=== PATIENT | male | born 1985 | race Two or more races ===

== ENCOUNTER 2017-07-23 08:55 | Emergency (ER) | payer OTHER ==
[2017-07-23] MEDS ORDERED: IBUPROFEN 800 MG TABLET PO ONE (09:24)
--- NOTE | 2017-07-23 09:27 | ER Document Report ---
ED Extremity Problem, Upper - General Chief Complaint: Arm Injury Stated Complaint: RIGHT FOREARM PAIN Time Seen by Provider: 07/23/17 09:13 Mode of Arrival: Ambulatory Information source: Patient Notes: Patient is a 31-year-old male who presents to the ER today for right forearm pain after lifting a heavy log into a truck on the job yesterday and feeling a pop in the right forearm beneath the elbow. Patient states that he then afterwards felt something like "a tear." He states that he iced it last night and continue to try to move it because he thought that would make it better. He states it is very painful to move but denies any numbness or tingling. He states he had a painful sleep last night because of the arm. He denies any bruising or swelling. TRAVEL OUTSIDE OF THE [place] IN LAST 30 DAYS: No - Related Data Allergies/Adverse Reactions: No Known Allergies Allergy (Unverified 07/23/17 09:14) Past Medical History - General Information source: Patient - Social History Smoking Status: Never Smoker Chew tobacco use (# tins/day): No Frequency of alcohol use: Rare Drug Abuse: None Family History: Reviewed & Not Pertinent Patient has suicidal ideation: No Patient has homicidal ideation: No Renal/ Medical History: Denies: Hx Peritoneal Dialysis Review of Systems - Review of Systems Constitutional: No symptoms reported EENT: No symptoms reported Cardiovascular: No symptoms reported Respiratory: No symptoms reported Gastrointestinal: No symptoms reported Genitourinary: No symptoms reported Male Genitourinary: No symptoms reported Musculoskeletal: See HPI Skin: No symptoms reported Hematologic/Lymphatic: No symptoms reported Neurological/Psychological: No symptoms reported Physical Exam - Vital signs Vitals: Temp Pulse Resp BP Pulse Ox 98.2 F 67 18 139/72 H 100 07/23/17 09:00 07/23/17 09:00 07/23/17 09:00 07/23/17 09:00 07/23/17 09:00 - Notes Notes: PHYSICAL EXAMINATION: GENERAL: Well-appearing and in no acute distress. HEAD: Atraumatic, normocephalic. EYES: Pupils equal round and reactive to light, extraocular movements intact, sclera anicteric, conjunctiva are normal. NECK: Normal range of motion, supple without lymphadenopathy LUNGS: CTAB and equal. No wheezes rales or rhonchi. HEART: Regular rate and rhythm without murmurs BACK: no vertebral tenderness, normal ROM EXTREMITIES: Normal range of motion, but with pain on flexion of the right arm at the elbow and pain with gripping my hand with his hand, no pitting edema. No cyanosis. NEUROLOGICAL: Cranial nerves grossly intact. Normal sensory/motor exams. PSYCH: Normal mood, normal affect. SKIN: Warm, Dry, normal turgor, no rashes or lesions noted Course - Re-evaluation Re-evalutation: 07/23/17 09:55 X-ray reveals no acute pathology. Patient complete placed in [place] wrap and sling so that he does not flex the arm. Patient to follow-up with orthopedics for possible MRI if symptoms do not resolve or are not resolving in 2 weeks. - Vital Signs Vital signs: Temp Pulse Resp BP Pulse Ox 97.7 F 61 16 140/82 H 99 07/23/17 10:08 07/23/17 10:08 07/23/17 10:08 07/23/17 10:08 07/23/17 10:08 Discharge - Discharge Clinical Impression: Sprain of right forearm Qualifiers: Encounter type: initial encounter Qualified Code(s): S63.501A - Unspecified sprain of right wrist, initial encounter Condition: Stable Disposition: HOME, SELF-CARE Additional Instructions: Return immediately for any new or worsening symptoms. Follow up with orthopedics in 2 weeks if symptoms do not seem to be resolving at all. Prescriptions: Ibuprofen [Motrin 800 mg Tablet] 800 mg PO Q8H PRN #30 tab PRN Reason: Forms: Return to Work Referrals: COLIN MAY DO [ACTIVE STAFF] - Follow up as needed
--- NOTE | 2017-07-23 09:46 | RADIOLOGY REPORT (SQ) ---
EXAM DESCRIPTION: FOREARM RIGHT COMPLETED DATE/TIME: 07/23/2017 9:35 am REASON FOR STUDY: injury, pain COMPARISON: None. NUMBER OF VIEWS: Two views right radius and ulna. LIMITATIONS: None. FINDINGS: No fracture or bone lesion. Soft tissues normal. No gross elbow joint effusion. Probabl e ulnohumeral mild spurring. OTHER: No other significant finding. IMPRESSION: No acute or suspicious radiographic findings in the right forearm. TECHNICAL DOCUMENTATION: JOB ID: [id number]
[2017-07-23] MEDS ORDERED: HYDROCODONE/ACETAMINOPHEN 5-325 MG 6 TAB/DSPK PO PRN (09:57)
[2017-07-23 10:11] VITALS: BP 140/82
== END 2017-07-23 10:10 | disposition home or self-care (01) ==
LOC: ER 08:55
DX: S63.501A Unspecified sprain of right wrist, initial encounter (principal); X50.0XXA Overexertion from strenuous movement or load, initial encounter; Y93.89 Activity, other specified; Y99.0 Civilian activity done for income or pay
CPT/HCPCS: 99283

== ENCOUNTER 2020-08-26 11:01 | Emergency (ER) | payer OTHER ==
--- NOTE | 2020-08-26 11:24 | ER Document Report ---
ED General - General Chief Complaint: Back Pain Stated Complaint: LOW BACK PAIN Time Seen by Provider: 08/26/20 11:11 Primary Care Provider: BIB HOU MD [COMMUNITY BASED STAFF] - Follow up as needed COLIN MAY DO [ACTIVE STAFF] - Follow up as needed TRAVEL OUTSIDE OF THE [place] 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 Patient denies any fall or trauma. States he thinks he may have twisted his back after he was picking up his backpack while hiking. Patient was seen at [facility] emergency room yesterday, he states he was given a shot of Toradol, Valium and he also was sent with a prescription for lidocaine patches, Flexeril and naproxen. Patient states he is having limited pain relief from these medications. Reports he has not had any imaging. Patient states that he does have a history of intermittent "flareups" of back spasms and back pain. Denies fevers, chills, chest pain,palpitations, shortness of breath, nausea, vomiting, diarrhea, abdominal pain, hematuria,blurred vision, double vision, loss of vision, speech changes, LH, dizziness, syncope, headaches, neck pain, weakness, bowel or bladder dysfunction, saddle anesthesia, numbness or tingling in bilateral upper or lower extremities equally, muscle paralysis, weakness in bilateral upper or lower extremities equally or rash. Denies IV drug use. - Related Data Allergies/Adverse Reactions: No Known Allergies Allergy (Unverified 07/23/17 09:14) Past Medical History - General Information source: Patient - Social History Smoking Status: Never Smoker Chew tobacco use (# tins/day): No Frequency of alcohol use: Rare Drug Abuse: None Family History: Reviewed & Not Pertinent Renal/ Medical History: Denies: Hx Peritoneal Dialysis Review of Systems - Review of Systems Constitutional: No symptoms reported EENT: No symptoms reported Cardiovascular: No symptoms reported Respiratory: No symptoms reported Gastrointestinal: No symptoms reported Genitourinary: No symptoms reported Male Genitourinary: No symptoms reported Musculoskeletal: See HPI Skin: No symptoms reported Hematologic/Lymphatic: No symptoms reported Neurological/Psychological: No symptoms reported Physical Exam - Vital signs Vitals: Temp Pulse Resp BP Pulse Ox 98.5 F 64 16 128/69 H 100 08/26/20 11:06 08/26/20 11:06 08/26/20 11:06 08/26/20 11:06 08/26/20 11:06 - Notes Notes: MEDICATIONS: I agree with the patient medications as charted by the RN. ALLERGIES: I agree with the allergies as charted by the RN. PAST MEDICAL HISTORY/PAST SURGICAL HISTORY: Reviewed and agree as charted by RN. SOCIAL HISTORY: Reviewed and agree as charted by RN. FAMILY HISTORY: No significant familial comorbid conditions directly related to patient complaint EXAM: Reviewed vital signs as charted by RN. PHYSICAL EXAMINATION:reviewed vital signs by RN GENERAL: Well-appearing, well-nourished and in no acute distress. HEAD: Atraumatic, normocephalic. EYES: Pupils equal round and reactive to light, extraocular movements intact, sclera anicteric, conjunctiva are normal. ENT: Nares patent, oropharynx clear without exudates. Moist mucous membranes. NECK: Normal range of motion, supple without lymphadenopathy LUNGS: Breath sounds clear to auscultation bilaterally and equal. No wheezes rales or rhonchi. HEART: Regular rate and rhythm without murmurs ABDOMEN: Soft, nontender, nondistended abdomen. No guarding, no rebound. No masses appreciated. Musculoskeletal: Normal range of motion, no pitting or edema. No cyanosis.Pain with flexion at 30 degrees, positive straight leg test on hte left. Normal hip rotation. No pain with extension in back. DTR +2 in BLE equally. Strength 5 out of 5 both distally and proximally to bilateral lower extremities normal motor and sensory function in BLE equally. Distal pulses + 2 BLE equally. Noted paraspinal tenderness near left L2 and L3. Strength 5 out of 5 in bilateral lower extremities equally. no spinal tenderness. No CVA tenderness bilaterally. Femoral pulses + 2 bilaterally and equally. No abrasions, scars, lacerations, ecchymosis of any recent trauma. normal gait, no limping, grimacing noted. Normal plantar flexion, dorsiflexion. NEUROLOGICAL: Cranial nerves grossly intact. Normal speech, normal gait. Normal sensory, motor exams PSYCH: Normal mood, normal affect. SKIN: Warm, Dry, normal turgor, no rashes or lesions noted. Course - Re-evaluation Re-evalutation: 08/26/20 12:21 Afebrile, vital stable no distress. Nurses notes reviewed. X-ray of lumbar spine negative for any acute fracture, dislocations or foreign body. Patient already was given a prescription for naproxen, Flexeril and lidocaine patches, also [place] primary care provider. Patient had no focal neurological deficit on clinical examination. I did discuss with him the importance of applying heat, receiving a physical therapy referral for his back, advised to not drive, drink alcohol or operate machinery while taking narcotic as this can cause sedation or impairment of cognitive function. 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 Give him a work note to be out until this upcoming Tuesday. After performing a Medical Screening Examination, I estimate there is LOW risk for EXPANDING OR RUPTURED ABDOMINAL AORTIC ANEURYSM, CAUDA EQUINA SYNDROME, EPIDURAL MASS ABSCESS OR LESION(S), OSTEOMYELITIS,PERSONAL HISTORY OF CANCER, IMMUNOSUPPERSSSION, HISTORY OF IV DRUG USE, FRACTURE, CORD COMPERSSION, CANCER, RETROPERITONEAL BLEED, SPINAL EPIDURAL HEMATOMA, or HERNIATED DISK CAUSING SEVERE SPINAL STENOSIS, thus I consider the discharge disposition reasonable. I have reevaluated this patient multiple times and no significant life threatening changes are noted. The patient and I have discussed the diagnosis and risks, and we agree with discharging home and close follow-up. We also discussed returning to the Emergency Department immediately if new or worsening symptoms occur with the understanding that symptoms and presentations can change. We have discussed the symptoms which are most concerning (e.g., saddle anesthesia, urinary or bowel incontinence or retention, changing or worsening pain) that necessitate immediate return. 08/26/20 12:44 - Vital Signs Vital signs: Temp Pulse Resp BP Pulse Ox 98.5 F 64 16 128/69 H 100 08/26/20 11:06 08/26/20 11:06 08/26/20 11:06 08/26/20 11:06 08/26/20 11:06 - Laboratory Results Critical Laboratory Results Reviewed: No Critical Results - Radiology Results Critical Radiology Results Reviewed: No Critical Results Discharge - Discharge Clinical Impression: Sciatica of left side Condition: Stable Disposition: HOME, SELF-CARE Instructions: Low Back Pain ([facility]), Muscle Strain ([facility]), Oral Narcotic Medication ([facility]), Pain Medication Injection ([facility]), Stretching Exercises for the Back ([facility]), Warm Packs ([facility]) Additional Instructions: Continue taking your Flexeril, naproxen and using your lidocaine patches as directed. Do not drive, drink alcohol or operate machinery while taking narc otics as it can cause sedation or impairment of cognitive function. Your x-ray today was normal. You do not have any red flag symptoms that would warrant an emergent MRI of your back. You likely aggravated your back while you are hiking, there is a potentiality of having a herniated disc. If your back pain is persistent, it is recommended that you follow-up with a orthopedic physical therapist and if they feel that you need further imaging they will proceed as necessary. Apply heat 20 minutes on 20 minutes off several times a day, taking your muscle relaxers and the anti-inflammatory will be helpful with your recovery. I did give you a work excuse until this upcoming Tuesday. If you experience any worsening pain, any weakness, bowel or bladder dysfunction, numbness in your pelvic area those are reasons to return to the emergency room immediately. Return immediately for any new or worsening symptoms. Follow up with primary care provider, call tomorrow to make followup appointment. Forms: Return to Work Referrals: COLIN MAY DO [ACTIVE STAFF] - Follow up as needed BIB HOU MD [COMMUNITY BASED STAFF] - Follow up as needed
[2020-08-26] MEDS ORDERED: KETOROLAC TROMETHAMINE 60 MG/2 ML SDV IM ONE (12:22)
[2020-08-26] MEDS ORDERED: HYDROCODONE/ACETAMINOPHEN 5-325 MG (6 TAB/ER DISP) PO PRN (12:23)
--- NOTE | 2020-08-26 12:42 | RADIOLOGY REPORT (SQ) ---
EXAM DESCRIPTION: L SPINE WHOLE IMAGES COMPLETED DATE/TIME: 08/26/2020 12:07 pm REASON FOR STUDY: lbp x6days,hiking, r/o compression fx COMPARISON: None. NUMBER OF VIEWS: Five views including obliques. TECHNIQUE: AP, lateral, oblique, and sacral radiographic images acquired of the lumbar spine. LIMITATIONS: None. FINDINGS: MINERALIZATION: Normal. SEGMENTATION: Normal. No transitional anatomy. ALIGNMENT: Minimal scoliosis. VERTEBRAE: Maintained height. No fracture or worrisome bone lesion. DISCS: Minimal disc narrowing from L3-S1. POSTERIOR ELEMENTS: Pedicles and facets are intact. No pars defect or posterior arch defects. HARDWARE: None in the spine. PARASPINAL SOFT TISSUES: Normal. PELVIS: Intact as visualized. No fractures or worrisome bone lesions. SI joints intact. OTHER: No other significant finding. IMPRESSION: Minimal scoliosis. Minimal degenerative disc changes. No acute findings. TECHNICAL DOCUMENTATION: JOB ID: [id number] 2010 [employer] [place]- All Rights Reserved Reading location - IP/workstation name: [email or web address]
[2020-08-26 13:08] VITALS: BP 129/77
== END 2020-08-26 13:00 | disposition home or self-care (01) ==
LOC: ER 11:01
DX: M47.817 Spondylosis without myelopathy or radiculopathy, lumbosacral region (principal); M54.42 Lumbago with sciatica, left side; M41.9 Scoliosis, unspecified
CPT/HCPCS: 99284; 96372; 72110; J1885